=== PATIENT | male | born 1975 | race Two or more races ===

== ENCOUNTER 2022-09-12 15:55 | Emergency (ER) | payer OTHER ==
[~2022-09-12] VITALS: Ht 188 cm; Wt 85.9 kg
[2022-09-12 18:28] VITALS: BP 132/73
[2022-09-12] MEDS ORDERED: IBUP800T27 PO (20:27)
[2022-09-12] MEDS ORDERED: KETOROLAC TROMETH 60MG/2ML VIAL IM ONE (20:30)
== END 2022-09-12 21:03 | disposition home or self-care (01) ==
LOC: ER 15:55
DX: S83.91XA Sprain of unspecified site of right knee, initial encounter (principal); E11.9 Type 2 diabetes mellitus without complications; I10 Essential (primary) hypertension; W18.00XA Striking against unspecified object with subsequent fall, initial encounter; Y93.89 Activity, other specified; Y92.89 Other specified places as the place of occurrence of the external cause; Y99.8 Other external cause status
CPT/HCPCS: 29505; 73562; 96372; 99283; J1885